=== PATIENT | female | born 1985 | race Caucasian/White ===

== ENCOUNTER 2022-02-08 13:57 | Inpatient (IN) | payer OTHER ==
[~2022-02-08] VITALS: Ht 165.1 cm; Wt 104.3 kg
[2022-02-08] MEDS ORDERED: LACTATED RINGERS 500 ML IV SCH (15:15)
[2022-02-08] MEDS ORDERED: METHYLERGONOVINE 0.2 MG/ML AMP IM PRN (15:15)
[2022-02-08] MEDS ORDERED: CARBOPROST 250 MCG/ML AMP IM PRN (15:15)
[2022-02-08] MEDS ORDERED: LACTATED RINGERS 500 ML IV ONE (15:15)
[2022-02-08 15:40] LABS: APPEARANCE,URINE CLEAR (CLEAR); BILIRUBIN,URINE NEGATIVE (NEGATIVE); BLOOD, URINE NEGATIVE (NEGATIVE); COLOR,URINE YELLOW (YELLOW); LEUKOCYTE ESTERASE ,URINE NEGATIVE (NEGATIVE); NITRITE, URINE NEGATIVE (NEGATIVE); UGLUCOSE NEGATIVE (NEGATIVE)
[2022-02-08 15:41] LABS: BASOPHILS # (AUTO) 0.1 K/uL (0.00-0.22); BASOPHILS % (AUTO) 0.7 % (0.0-2.0); EOSINOPHILS # (AUTO) 0.1 K/uL (0-0.4); EOSINOPHILS % (AUTO) 0.6 % (0.0-4.0); HEMATOCRIT 35.2 % (36-48); HEMOGLOBIN 11.6 g/dL (12.0-16.0); LYMPHOCYTES % (AUTO) 16.3 % (20.5-51.1); MEAN CORPUSCULAR HEMOGLOBIN 27 pg (27-31); MEAN CORPUSCULAR HGB CONC 33 g/dL (33-37); MEAN CORPUSCULAR VOLUME 83.2 fL (80-94); MONOCYTES # (AUTO) 0.7 K/uL (0.8-1.0); MONOCYTES % (AUTO) 6.1 % (1.7-9.3); NEUTROPHILS # (AUTO) 9.1 K/uL (1.8-7.7); NEUTROPHILS % (AUTO) 76.3 % (42.2-75.2); PLATELET COUNT (AUTO) 225 K/uL (140-450); RED BLOOD CELL COUNT(AUTO) 4.23 MIL/uL (4.20-5.40); RED CELL DISTRIBUTION WIDTH 15.6 % (11.6-13.7)
[2022-02-08 15:56] LABS: ALBUMIN 2.5 g/dL (3.4-5.0); ANION GAP 14.9 (8-16); CREATININE 0.4 mg/dL (0.6-1.3); POTASSIUM 3.9 mmol/L (3.5-5.1); TOTAL BILIRUBIN 0.1 mg/dL (0.0-1.0)
[2022-02-08 16:04] LABS: PROTHROMBIN TIME 9.1 secs (10.8-13.4)
[2022-02-08] MEDS ORDERED: ceFAZolin 2,000 MG VIAL ONE (17:20)
[2022-02-08 19:14] VITALS: BP 112/65
[2022-02-08] MEDS ORDERED: MORPHINE PRES FREE 10 MG/10 ML AMP IV ONE (19:30)
[2022-02-08] MEDS ORDERED: MIDAZOLAM 2 MG/2 ML VIAL ONE (19:30)
[2022-02-08] MEDS ORDERED: NALBUPHINE 10 MG/ML AMP IVP PRN (20:00)
[2022-02-08] MEDS ORDERED: OXYTOCIN 20 UNITS in LACTATED RINGERS 1,000 ML IV SCH (20:00)
[2022-02-08] MEDS ORDERED: diphenhydrAMINE 50 MG/ML VIAL IVP PRN ×2 (20:00)
[2022-02-08] MEDS ORDERED: MEPERIDINE 25 MG/ML SYR IVP PRN (20:00)
[2022-02-08] MEDS ORDERED: HYDROmorphone 1 MG/ML AMP IVP PRN (20:00)
[2022-02-08] MEDS ORDERED: ONDANSETRON 4 MG/2 ML VIAL IVP PRN ×2 (20:00)
[2022-02-08] MEDS ORDERED: NALOXONE 0.4 MG/ML VIAL IVP PRN ×3 (20:00)
[2022-02-08] MEDS ORDERED: OXYTOCIN 20 UNITS/LR PREMIX 1,000 ML IV ONE (21:07)
[2022-02-08] MEDS: OXYTOCIN 20 UNITS/LR PREMIX 1,000 ML IV ONE ×2 (21:37→21:51)
[2022-02-09] MEDS: KETOROLAC 30 MG/ML VIAL IM/IVP SCH ×3 (00:08→11:57)
[2022-02-09] MEDS ORDERED: OXYTOCIN 20 UNITS/LR PREMIX 1,000 ML IV ONE ×2 (02:24→13:14)
[2022-02-09 05:46] LABS: BASOPHILS % (AUTO) 0.2 % (0.0-2.0); HEMATOCRIT 32.4 % (36-48); HEMOGLOBIN 10.7 g/dL (12.0-16.0); LYMPHOCYTES % (AUTO) 5.8 % (20.5-51.1); MEAN CORPUSCULAR HEMOGLOBIN 27 pg (27-31); MEAN CORPUSCULAR HGB CONC 33 g/dL (33-37); MEAN CORPUSCULAR VOLUME 83.2 fL (80-94); MONOCYTES # (AUTO) 0.6 K/uL (0.8-1.0); MONOCYTES % (AUTO) 3.6 % (1.7-9.3); NEUTROPHILS # (AUTO) 16.1 K/uL (1.8-7.7); NEUTROPHILS % (AUTO) 90.4 % (42.2-75.2); PLATELET COUNT (AUTO) 199 K/uL (140-450); RED BLOOD CELL COUNT(AUTO) 3.89 MIL/uL (4.20-5.40); RED CELL DISTRIBUTION WIDTH 15.7 % (11.6-13.7); WHITE BLOOD COUNT (AUTO) 17.8 K/uL (4.8-10.8)
[2022-02-09] MEDS: OXYTOCIN 20 UNITS in LACTATED RINGERS 1,000 ML IV SCH ×2 (06:00→13:19)
--- NOTE | 2022-02-09 09:06 | NUR ---
PATIENT HAS BEEN SCREENED AND CATEGORIZED LOW NUTRITION RISK. PATIENT WILL BE SEEN WITHIN 7 DAYS OF ADMISSION. 02/15/22 REVIEWED BY [address]
[2022-02-09] MEDS ORDERED: METHYLERGONOVINE 0.2 MG/ML AMP IM PRN (11:40)
[2022-02-09] MEDS ORDERED: MEASLES, MUMPS, AND RUBELLA 1 VIAL SQVAC ONE (11:40)
[2022-02-09] MEDS ORDERED: KETOROLAC 30 MG/ML VIAL IVP PRN (11:40)
[2022-02-09] MEDS ORDERED: oxyCODONE/APAP 5/325 MG 1 TAB TAB PO PRN (11:40)
[2022-02-09] MEDS ORDERED: bisacodyL 5 MG TABEC PO PRN (11:40)
[2022-02-09] MEDS ORDERED: MEASLES, MUMPS, AND RUBELLA 1 VIAL SQVAC SCH (11:55)
[2022-02-10] MEDS: SIMETHICONE 80 MG TAB.CHEW PO PRN ×2 (09:01→14:30)
[2022-02-11] MEDS ORDERED: IBUPROFEN 800 MG TAB PO PRN (01:35)
== END 2022-02-11 11:00 | disposition home or self-care (01) | DRG 539 ==
LOC: MLD 13:57 → OBSVTOIN 15:14 → MFCC 22:33
PROVIDERS: ADMIT Obstetrics & Gynecology; ATTEND Obstetrics & Gynecology
PROC: 0UB70ZZ Excision of Bilateral Fallopian Tubes, Open Approach (ICD-10-PCS; 2022-02-08)
PROC: 10D00Z1 Extraction of Products of Conception, Low, Open Approach (ICD-10-PCS; principal; 2022-02-08 18:00)
DX: O34.211 Maternal care for low transverse scar from previous cesarean delivery (principal); O69.81X0 Labor and delivery complicated by cord around neck, without compression, not applicable or unspecified; Z20.822 Contact with and (suspected) exposure to COVID-19; Z3A.37 37 weeks gestation of pregnancy; Z37.0 Single live birth
CPT/HCPCS: 36415; 51702; 76815; 80053; 81003; 85025; 85610; 85730; 86592; 86886; 86900; 86901; 88302; J1200; J1885; J2250; J2270; J2405; J2590; J7120; Q0092; Q0163